=== PATIENT | female | born 1970 | race Caucasian/White ===

== ENCOUNTER 2017-07-20 19:58 | Emergency (ER) | payer MEDICAID ==
[~2017-07-20] VITALS: Ht 152.4 cm; Wt 77.3 kg
[~2017-07-20 19:58] MED LIST: NOCURR
[2017-07-20 20:33] LABS: EOSINOPHILS % (AUTO) 0.8 % (1.0-6.0); HEMATOCRIT 27.6 % (36-46); LYMPHOCYTES # (AUTO) 3.3 K/uL (1.0-4.8); MEAN CORPUSCULAR HEMOGLOBIN 24.3 pg (26.0-34.0); MEAN CORPUSCULAR HGB CONC 32.7 G/dL (31.0-37.0); MEAN CORPUSCULAR VOLUME 74 fL (80-100); MONOCYTES # (AUTO) 0.5 K/uL (0.1-1.0); MONOCYTES % (AUTO) 5.9 % (2.0-9.0); NEUTROPHILS # (AUTO) 4.3 K/uL (1.8-7.7); NEUTROPHILS % (AUTO) 52.3 % (40.0-70.0); PLATELET COUNT (AUTO) 382 K/uL (150-450); RED BLOOD CELL COUNT(AUTO) 3.71 MIL/uL (4.00-5.20)
[2017-07-20 20:36] LABS: ANION GAP 7 mmol/L (8-16); CARBON DIOXIDE 27 mmol/L (22-29); CHLORIDE 104 mmol/L (98-107); CREATININE 0.85 mg/dL (0.60-1.30); GLOMERULAR FILTR. RATE CALC > 60 mL/min (>60); GLUCOSE,RANDOM 94 mg/dL (70-110); POTASSIUM 3.7 mmol/L (3.5-5.1); SODIUM SERUM 138 mmol/L (136-145); UREA NITROGEN, BLOOD 14 mg/dL (7-18)
[2017-07-20 20:41] LABS: ALANINE AMINOTRANSFERASE 14 U/L (12-78); ALBUMIN 3.2 g/dL (3.4-5.0); ALKALINE PHOSPHATASE 103 U/L (46-116); ASPARTATE AMINOTRANSFERASE 15 U/L (15-37); BILIRUBIN,TOTAL 0.1 mg/dL (0.1-1.0); TOTAL PROTEIN, SERUM 7.2 g/dL (6.4-8.2)
[2017-07-20] MEDS ORDERED: KETOROLAC TROMETHAMINE 30 MG/ML VIAL IVP ONE (21:30)
[2017-07-20] MEDS ORDERED: ASPIRIN 81 MG CHEWABLE TABLET PO ONE (21:30)
[2017-07-20] MEDS ORDERED: LORazepam 1 MG TABLET PO ONE (21:30)
[2017-07-20 22:07] VITALS: BP 135/73
== END 2017-07-20 23:11 | disposition home or self-care (01) ==
LOC: EMS 19:58
DX: R55 Syncope and collapse (principal); R07.89 Other chest pain; F41.9 Anxiety disorder, unspecified; Z98.51 Tubal ligation status; Z90.49 Acquired absence of other specified parts of digestive tract; Z98.890 Other specified postprocedural states
CPT/HCPCS: 36415; 71045; 80053; 84484; 85025; 93005; 96374; 99285; J1885

== ENCOUNTER 2020-08-11 22:41 | Emergency (ER) | payer MEDICAID ==
[~2020-08-11] VITALS: Ht 154.9 cm; Wt 72.7 kg
[2020-08-12 01:00] VITALS: BP 130/69
[2020-08-12] MEDS ORDERED: PERTUSS(ACELL),DIPH,TET VAC/PF 0.5 ML VIAL IM ONE (01:15)
== END 2020-08-12 01:32 | disposition home or self-care (01) ==
LOC: EMS 22:41
DX: S11.93XA Puncture wound without foreign body of unspecified part of neck, initial encounter (principal); M25.511 Pain in right shoulder; R07.89 Other chest pain; Y04.2XXA Assault by strike against or bumped into by another person, initial encounter; Y93.89 Activity, other specified; Y92.89 Other specified places as the place of occurrence of the external cause; Y99.8 Other external cause status
CPT/HCPCS: 72110; 99284; 71046; 71046-TC

== ENCOUNTER 2022-12-06 17:56 | Emergency (ER) | payer MEDICAID ==
[~2022-12-06] VITALS: Ht 157.5 cm; Wt 81.8 kg
[2022-12-06 18:38] LABS: BASOPHILS % (AUTO) 0.4 % (0.0-2.0); EOSINOPHILS % (AUTO) 0.3 % (1.0-6.0); HEMATOCRIT 42.3 % (36-46); HEMOGLOBIN 14.4 g/dL (12.0-16.0); LYMPHOCYTES # (AUTO) 1.4 K/uL (1.0-4.8); LYMPHOCYTES % (AUTO) 13.7 % (22.0-44.0); MEAN CORPUSCULAR HEMOGLOBIN 31.6 pg (26.0-34.0); MEAN CORPUSCULAR HGB CONC 34.1 G/dL (31.0-37.0); MEAN CORPUSCULAR VOLUME 93 fL (80-100); MONOCYTES # (AUTO) 0.3 K/uL (0.1-1.0); MONOCYTES % (AUTO) 3.1 % (2.0-9.0); NEUTROPHILS # (AUTO) 8.4 K/uL (1.8-7.7); NEUTROPHILS % (AUTO) 82.5 % (40.0-70.0); PLATELET COUNT (AUTO) 305 K/uL (150-450); RED BLOOD CELL COUNT(AUTO) 4.56 MIL/uL (4.00-5.20); RED CELL DISTRIBUTION WIDTH 13.8 % (11.5-14.5)
[2022-12-06 18:47] LABS: ANION GAP 14 mmol/L (8-16); CALCIUM, TOTAL 8.7 mg/dL (8.8-10.5); CARBON DIOXIDE 24 mmol/L (22-29); CHLORIDE 100 mmol/L (98-107); CREATININE 0.86 mg/dL (0.60-1.30); GLOMERULAR FILTR. RATE CALC > 60 mL/min (>60); GLUCOSE,RANDOM 114 mg/dL (70-110); POTASSIUM 3.7 mmol/L (3.5-5.1); SODIUM SERUM 138 mmol/L (136-145)
[2022-12-06 18:53] LABS: ALANINE AMINOTRANSFERASE 23 U/L (12-78); ALBUMIN 3.6 g/dL (3.4-5.0); ALKALINE PHOSPHATASE 111 U/L (46-116); ASPARTATE AMINOTRANSFERASE 16 U/L (15-37); BILIRUBIN,TOTAL 0.5 mg/dL (0.1-1.0); LIPASE 37 U/L (73-393); TOTAL PROTEIN, SERUM 8.2 g/dL (6.4-8.2)
[2022-12-06] MEDS ORDERED: FAMOTIDINE 20 MG/2 ML VIAL IVP ONE (19:30)
[2022-12-06] MEDS ORDERED: ONDANSETRON HCL 4 MG/2 ML VIAL IVP ONE (19:30)
[2022-12-06] MEDS ORDERED: SODIUM CHLORIDE 0.9% 1,000 ML IV ONE (19:30)
[2022-12-06] MEDS ORDERED: MAG HYDROX/AL HYDROX/SIMETH 30 ML SUSP UDCUP PO ONE (19:30)
[2022-12-06] MEDS ORDERED: KETOROLAC TROMETHAMINE 30 MG/ML VIAL IVP ONE (19:30)
[2022-12-06] MEDS ORDERED: IOHEXOL 350 MG/ML 100 ML VIAL ONE (19:49)
[2022-12-06] MEDS ORDERED: SODIUM CHLORIDE 0.9% 100 ML ONE (19:50)
[2022-12-06] MEDS ORDERED: ONDA-104 PO (21:36)
[2022-12-06] MEDS ORDERED: AMOX1TAB16 PO (21:36)
[2022-12-06] MEDS ORDERED: AMOX TR/POT CLAV 875 MG/125 MG TABLET PO ONE (21:45)
[2022-12-06 22:06] VITALS: BP 127/73; PULSE 71; RESP 18; TEMP 98.3
== END 2022-12-06 22:15 | disposition home or self-care (01) ==
LOC: EMS 17:57
DX: K52.9 Noninfective gastroenteritis and colitis, unspecified (principal); Z90.49 Acquired absence of other specified parts of digestive tract; Z90.710 Acquired absence of both cervix and uterus; Z98.890 Other specified postprocedural states
CPT/HCPCS: 99285; 74177; 96374; 96375; 96361; 80053; 83690; 84703; 85025; 36415; J3490; J1885; J2405; Q9967; J7030; J7050

== ENCOUNTER 2023-06-13 17:59 | Emergency (ER) | payer MEDICAID ==
[~2023-06-13] VITALS: Ht 154.9 cm; Wt 79.5 kg
[~2023-06-13 17:59] MED LIST changes: +AMOX1TAB16 PO; -NOCURR; +ONDA-104 PO
[2023-06-13 18:31] VITALS: TEMP 97.6
[2023-06-13 19:30] LABS: BASOPHILS % (AUTO) 0.8 % (0.0-2.0); EOSINOPHILS % (AUTO) 1.3 % (1.0-6.0); HEMATOCRIT 39.3 % (36-46); HEMOGLOBIN 13.4 g/dL (12.0-16.0); LYMPHOCYTES # (AUTO) 2.9 K/uL (1.0-4.8); LYMPHOCYTES % (AUTO) 27.9 % (22.0-44.0); MEAN CORPUSCULAR HEMOGLOBIN 31.5 pg (26.0-34.0); MEAN CORPUSCULAR HGB CONC 34.1 G/dL (31.0-37.0); MEAN CORPUSCULAR VOLUME 93 fL (80-100); MONOCYTES # (AUTO) 0.6 K/uL (0.1-1.0); MONOCYTES % (AUTO) 5.6 % (2.0-9.0); NEUTROPHILS # (AUTO) 6.7 K/uL (1.8-7.7); NEUTROPHILS % (AUTO) 64.4 % (40.0-70.0); PLATELET COUNT (AUTO) 323 K/uL (150-450); RED BLOOD CELL COUNT(AUTO) 4.24 MIL/uL (4.00-5.20); RED CELL DISTRIBUTION WIDTH 13.5 % (11.5-14.5); WHITE BLOOD COUNT (AUTO) 10.4 K/uL (4.5-11.0)
[2023-06-13 19:45] LABS: ANION GAP 9 mmol/L (8-16); CALCIUM, TOTAL 9.3 mg/dL (8.8-10.5); CARBON DIOXIDE 28 mmol/L (22-29); CHLORIDE 103 mmol/L (98-107); CREATININE 0.77 mg/dL (0.60-1.30); GLOMERULAR FILTR. RATE CALC > 60 mL/min (>60); GLUCOSE,RANDOM 94 mg/dL (70-110); POTASSIUM 4.2 mmol/L (3.5-5.1); SODIUM SERUM 140 mmol/L (136-145); UREA NITROGEN, BLOOD 10 mg/dL (7-18)
[2023-06-13 19:50] LABS: ALANINE AMINOTRANSFERASE 34 U/L (12-78); ALBUMIN 3.8 g/dL (3.4-5.0); ALKALINE PHOSPHATASE 137 U/L (46-116); ASPARTATE AMINOTRANSFERASE 23 U/L (15-37); BILIRUBIN,TOTAL 0.4 mg/dL (0.1-1.0); LIPASE 21 U/L (16-77); TOTAL PROTEIN, SERUM 8.4 g/dL (6.4-8.2)
[2023-06-13 19:57] LABS: TROPONIN I-HIGH SENSITIVITY 4 ng/L (<51)
[2023-06-13 20:23] LABS: COVID AG,FIA SOURCE NASAL SWAB
[2023-06-13 20:50] LABS: SARS-COV2 (COVID) ANTIGEN,FIA Negative (Negative)
[2023-06-13] MEDS ORDERED: POLY238P PO (21:36)
[2023-06-13] MEDS ORDERED: MAGNESIUM CITRATE [LEMON] 300 ML ORAL SOLUTION PO ONE (21:45)
[2023-06-13 22:16] VITALS: BP 127/68; PULSE 65; RESP 16
== END 2023-06-13 22:18 | disposition home or self-care (01) ==
LOC: EMS 17:59
DX: K59.00 Constipation, unspecified (principal); R10.11 Right upper quadrant pain; Z90.49 Acquired absence of other specified parts of digestive tract; Z90.710 Acquired absence of both cervix and uterus; Z98.890 Other specified postprocedural states; Z91.040 Latex allergy status; Z20.822 Contact with and (suspected) exposure to COVID-19
CPT/HCPCS: 76700; 80053; 83690; 84484; 85025; 99284

== ENCOUNTER 2024-10-06 12:03 | Emergency (ER) | payer MEDICAID ==
[~2024-10-06] VITALS: Ht 154.9 cm; Wt 79.5 kg
[~2024-10-06 12:03] MED LIST changes: -AMOX1TAB16 PO; -ONDA-104 PO; +POLY238P PO
[2024-10-06 12:14] VITALS: TEMP 98.4
[2024-10-06 12:41] LABS: APPEARANCE,URINE CLEAR (CLEAR); BILIRUBIN,URINE NEGATIVE (NEGATIVE); COLOR,URINE LIGHT YELLOW (YELLOW); GLUCOSE, URINE (UA) NEGATIVE (NEGATIVE); KETONES,URINE NEGATIVE (NEGATIVE); LEUKOCYTE ESTERASE ,URINE NEGATIVE (NEGATIVE); NITRATE,URINE NEGATIVE (NEGATIVE); OCCULT BLOOD,URINE NEGATIVE (NEGATIVE); PROTEIN,URINE NEGATIVE (NEGATIVE); RBC,URINE None Seen /HPF (0-2); SPECIFIC GRAVITIY, URINE 1.022 (1.003-1.030); UROBILINOGEN,URINE <=1.0 mg/dL (<=1.0); WBC,URINE None Seen /HPF (0-5)
[2024-10-06 12:42] LABS: BACTERIA,URINE None Seen /HPF (None Seen)
[2024-10-06] MEDS: KETOROLAC TROMETHAMINE 30 MG/ML VIAL IM ONE (14:26)
[2024-10-06] MEDS: LIDOCAINE 5% TRANSDERMAL PATCH TD ONE (14:27)
[2024-10-06] MEDS: TraMADol HCL 50 MG TABLET PO ONE (16:09)
[2024-10-06] MEDS ORDERED: TRAM50TA5 PO (16:59)
[2024-10-06] MEDS ORDERED: IBUP-1492 PO (16:59)
[2024-10-06 17:30] VITALS: BP 125/67; PULSE 74; RESP 16; O2SAT 100
== END 2024-10-06 17:52 | disposition home or self-care (01) ==
LOC: EMS 12:05
DX: M54.50 Low back pain, unspecified (principal); Z90.49 Acquired absence of other specified parts of digestive tract; Z90.710 Acquired absence of both cervix and uterus
CPT/HCPCS: 99283; 81001; 96372; J1885

== ENCOUNTER 2025-04-11 16:05 | Emergency (ER) | payer MEDICAID ==
[~2025-04-11] VITALS: Ht 152.4 cm; Wt 86.4 kg
[~2025-04-11 16:05] MED LIST changes: +IBUP-1492 PO; -POLY238P PO; +TRAM50TA5 PO
[2025-04-11 16:11] VITALS: BP 130/80; PULSE 68; RESP 18; TEMP 98.1; O2SAT 100
[2025-04-11] MEDS: KETOROLAC TROMETHAMINE 60 MG/2 ML VIAL IM ONE (18:43)
[2025-04-11] MEDS: ACETAMINOPHEN 500 MG TABLET PO ONE (18:44)
[2025-04-11] MEDS ORDERED: ACET-66 PO (18:47)
[2025-04-11] MEDS ORDERED: METH-659 PO (18:47)
[2025-04-11] MEDS ORDERED: IBUP-1554 PO (18:47)
== END 2025-04-11 19:10 | disposition home or self-care (01) ==
LOC: EMS 16:05
DX: S39.012A Strain of muscle, fascia and tendon of lower back, initial encounter (principal); F17.210 Nicotine dependence, cigarettes, uncomplicated; Z90.49 Acquired absence of other specified parts of digestive tract; Z90.710 Acquired absence of both cervix and uterus; Z79.899 Other long term (current) drug therapy; Z91.040 Latex allergy status; X58.XXXA Exposure to other specified factors, initial encounter; Y93.89 Activity, other specified; Y92.89 Other specified places as the place of occurrence of the external cause; Y99.8 Other external cause status
CPT/HCPCS: 99283; 96372; J1885